=== PATIENT | male | born 1945 | race Caucasian/White ===

== ENCOUNTER → 2020-07-30 16:31 | Outpatient (CLI) | payer MEDICARE, BC, SELFPAY ==
--- NOTE | 2020-07-30 | DI.MRI.S_ITS ---
PROCEDURE: MR KNEE RT WO CON INDICATIONS: PAIN IN RIGHT KNEE TECHNIQUE: Noncontrast sagittal PD fast spin echo and T2 fast spin echo with fat saturation, sagittal 3-D FLASH with fat saturation; coronal T1 spin echo and PD fast spin echo with fat saturation, and axial PD fast spin echo with fat saturation through the knee. COMPARISON: None. FINDINGS: Image quality: Excellent. Menisci: Peripheral displacement of medial meniscus is seen bowing medial collateral ligament. There is truncated appearance of the medial meniscus suggestive of prior partial meniscectomy versus chronic complex tear. There is oblique tear involving anterior horn of lateral meniscus extending to superior articulating surface. The meniscal root ligaments appear intact. Cruciate ligaments: There is nonvisualization of normal anterior cruciate ligament suggestive of chronic ACL rupture. Posterior cruciate ligament is intact. Medial structures: Low-grade MCL sprain is seen. The posterior oblique ligament, semimembranosus tendon insertions, oblique popliteal ligament, and meniscocapsular junction appear intact. Visualized portions of the pes anserinus tendons appear normal. No abnormal bursal fluid. Lateral structures: The lateral collateral ligament, long and short heads of the biceps femoris tendon appear intact. There is suggestion of tendinosis and low-grade partial-thickness tear involving popliteus tendon extending to musculotendinous junction. The posterosuperior and anteroinferior popliteomeniscal fascicles appear intact. The arcuate and fabellofibular ligaments appear intact, on either side of the lateral inferior geniculate artery. Iliotibial band appears normal. Anterior structures: The quadriceps and patellar tendons appear intact. Patellar alignment is normal. No femoral trochlear dysplasia or ventral trochlear prominence. No edema in the infrapatellar fat pad. Bones and cartilage: No fracture or dislocation is seen. Mild marrow edema involving weight-bearing portion of medial femoral condyle. 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 Low-grade chondromalacia involving weight-bearing portion of lateral femoral tibial compartment is seen. Articulating cartilages in patellofemoral compartment is intact. Joint space: There is moderate amount of joint fluid, no gross intra-articular loose body. No Bueno's cyst. Normal appearing synovial plicae are incidentally noted. IMPRESSION: 1. Truncated appearance of medial meniscus suggestive of prior partial meniscectomy versus chronic complex medial meniscal tear. Suggestion of oblique tear involving anterior horn of lateral meniscus extending to superior articulating surface. 2. Suggestion of full-thickness rupture of ACL. PCL is intact. 3. Low-grade MCL sprain. 4. Tendinosis and low-grade partial-thickness tear involving proximal popliteus tendon extending to musculotendinous junction. 5. 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 No fracture or dislocation. Low-grade chondromalacia in lateral femoral tibial compartment. Moderate amount of joint fluid, no gross loose body. Dictated by: Silver Mijares M.D. on 08/02/2020 at 8:51 Approved by: Silver Mijares M.D. on 08/02/2020 at 8:56
== END ==
PROVIDERS: Referring Provider Orthopaedic Surgery; Visit Provider Orthopaedic Surgery
DX: M25.561 Pain in right knee (principal); S83.411A Sprain of medial collateral ligament of right knee, initial encounter; S86.811A Strain of other muscle(s) and tendon(s) at lower leg level, right leg, initial encounter; M17.11 Unilateral primary osteoarthritis, right knee; M94.261 Chondromalacia, right knee
CPT/HCPCS: 73721

== ENCOUNTER → 2020-08-10 14:38 | Outpatient (CLI) | payer MEDICARE, BC, SELFPAY ==
[2020-08-10 15:11] LABS: Bacteria Urine None Seen
[2020-08-10 16:53] LABS: Add Manual Diff / Slide Review NO; Basophils Absolute Auto 100 /uL (0-100); Basophils Percent Auto 0.9 % (0-2); Eosinophils Absolute Auto 100 /uL (0-450); Eosinophils Percent Auto 1.6 % (2-4); Hematocrit 45.7 % (41-53); Hemoglobin 15.1 g/dL (13.5-17.5); Lymphocytes Absolute Auto 1500 /uL (1100-4500); Lymphocytes Percent Auto 23.9 % (25-40); Mean Corpuscular Hemoglobin 29.8 PG (26-34); Mean Corpuscular Volume 90.3 fL (80-100); Monocytes Absolute Auto 400 /uL (0-900); Monocytes Percent Auto 7.2 % (3-14); Neutrophils Absolute Auto 4100 /uL (1500-7000); Neutrophils Percent Auto 66.4 % (50-75); Platelet Count 154 X10^3/uL (150-400); Red Blood Cell Count 5.06 X10^6/uL (4.5-5.9); Red Cell Distribution Width 12.8 % (11.6-14.8); White Blood Cell Count 6.1 X10^3/uL (4.5-11.0)
[2020-08-10 17:05] LABS: Appearance Urine UA CLEAR; Bilirubin Urine UA NEGATIVE (NEGATIVE); Color Urine UA YELLOW; Glucose Urine UA NEGATIVE (Negative); Ketones Urine UA NEGATIVE (NEGATIVE); Leukocyte Esterase Urine UA NEGATIVE (NEGATIVE); Nitrite Urine UA NEGATIVE (Negative); Occult Blood Urine UA NEGATIVE (Negative); Protein Urine UA NEGATIVE (Negative); Specific Gravity Urine UA 1.025 (1.000-1.035); Urobilinogen Urine UA 0.2 E.U./dL (0.2)
[2020-08-10 17:09] LABS: BUN Creatinine Ratio 15.4 (6-22); Blood Urea Nitrogen 14 mg/dL (9-20); Calcium 9.2 mg/dL (8.4-10.2); Carbon Dioxide 32 mmol/L (22-32); Chloride 104 mmol/L (98-107); Estimated Glomerular Filt Rate > 60.0 mL/min (>60); Glucose 150 mg/dL (80-110); HEMOLYSIS < 15 (0-50); Potassium 3.9 mmol/L (3.4-5.1); Sodium 141 mmol/L (137-145)
[2020-08-10 17:10] LABS: Hemoglobin A1C% w Est Avg Glu 5.6 % (4.0-6.0)
[2020-08-10 17:18] LABS: Culture Indicated Urine Cult Not Indicated; RBC Urine 0-1/HPF (0-5/HPF); Squamous Epithelial Cell Urine 0-1 /HPF (0-5/HPF); Urine Comments Microscopic Normal; WBC Urine 0-1/HPF (0-5/HPF)
== END ==
PROVIDERS: Referring Provider Orthopaedic Surgery; Visit Provider Orthopaedic Surgery
DX: Z01.818 Encounter for other preprocedural examination (principal); Z01.812 Encounter for preprocedural laboratory examination; R73.9 Hyperglycemia, unspecified; N39.0 Urinary tract infection, site not specified
CPT/HCPCS: 36415; 80048; 81001; 83036; 85025; 93005

== ENCOUNTER → 2021-02-17 10:30 | Outpatient (CLI) | payer MEDICARE, BC, SELFPAY ==
[2021-02-17 11:29] LABS: Add Manual Diff / Slide Review NO; Basophils Absolute Auto 100 /uL (0-100); Basophils Percent Auto 1.1 % (0-2); Eosinophils Absolute Auto 100 /uL (0-450); Eosinophils Percent Auto 1.6 % (2-4); Hematocrit 44.6 % (41-53); Lymphocytes Absolute Auto 1200 /uL (1100-4500); Lymphocytes Percent Auto 24.8 % (25-40); Mean Corpuscular HGB Conc 33.6 % (30-36); Mean Corpuscular Hemoglobin 29.8 PG (26-34); Mean Corpuscular Volume 88.6 fL (80-100); Monocytes Absolute Auto 500 /uL (0-900); Monocytes Percent Auto 10.9 % (3-14); Neutrophils Absolute Auto 2900 /uL (1500-7000); Neutrophils Percent Auto 61.6 % (50-75); Platelet Count 152 X10^3/uL (150-400); Red Blood Cell Count 5.03 X10^6/uL (4.5-5.9); Red Cell Distribution Width 13.1 % (11.6-14.8); White Blood Cell Count 4.8 X10^3/uL (4.5-11.0)
[2021-02-17 12:14] LABS: BUN Creatinine Ratio 22.1 (6-22); Blood Urea Nitrogen 17 mg/dL (9-20); Calcium 9.4 mg/dL (8.4-10.2); Carbon Dioxide 27 mmol/L (22-32); Chloride 104 mmol/L (98-107); Estimated Glomerular Filt Rate > 60.0 mL/min (>60); Glucose 84 mg/dL (80-110); HEMOLYSIS < 15 (0-50); Potassium 4.6 mmol/L (3.4-5.1); Sodium 139 mmol/L (137-145)
== END ==
PROVIDERS: Referring Provider Orthopaedic Surgery; Visit Provider Orthopaedic Surgery
DX: Z01.812 Encounter for preprocedural laboratory examination (principal)
CPT/HCPCS: 36415; 80048; 85025

== ENCOUNTER → 2024-06-26 14:56 | Outpatient (CLI) | payer MEDICARE, BC, SELFPAY ==
[2024-06-26 17:41] LABS: Prostate Specific Antigen 5.76 ng/mL (0.10-4.00)
== END ==
PROVIDERS: PCP Student in an Organized Health Care Education/Training Program; Referring Provider Urology; Visit Provider Urology
DX: C61 Malignant neoplasm of prostate (principal); R97.20 Elevated prostate specific antigen [PSA]; N40.1 Benign prostatic hyperplasia with lower urinary tract symptoms; R30.0 Dysuria; Z68.29 Body mass index [BMI] 29.0-29.9, adult
CPT/HCPCS: 36415; 51798; 84153; 99213

== ENCOUNTER → 2024-07-28 14:21 | Outpatient (CLI) | payer MEDICARE, BC, SELFPAY ==
[2024-07-28 16:11] LABS: Prostate Specific Antigen 4.36 ng/mL (0.10-4.00)
== END ==
PROVIDERS: PCP Student in an Organized Health Care Education/Training Program; Referring Provider Urology; Visit Provider Urology
DX: N40.1 Benign prostatic hyperplasia with lower urinary tract symptoms (principal)
CPT/HCPCS: 36415; 84153

== ENCOUNTER → 2025-02-23 10:10 | Outpatient (CLI) | payer MEDICARE, BC, SELFPAY ==
[2025-02-23 12:39] LABS: Prostate Specific Antigen 1.33 ng/mL (0.10-4.00)
== END ==
PROVIDERS: Radiology Radiation Oncology; PCP Student in an Organized Health Care Education/Training Program; Referring Provider Urology; Visit Provider Urology
DX: C61 Malignant neoplasm of prostate (principal)
CPT/HCPCS: 36415; 84153

== ENCOUNTER 2025-04-24 16:02 | Emergency (ER) | payer MEDICARE, BC, SELFPAY ==
[2025-04-24 16:18] VITALS: BP 178/86; PULSE 77; RESP 17; TEMP 36.7; O2SAT 99; BMI 29.5
[2025-04-24 16:42] LABS: Add Manual Diff / Slide Review NO; Basophils Absolute Auto 0 /uL (0-100); Basophils Percent Auto 0.6 % (0-2); Eosinophils Absolute Auto 100 /uL (0-450); Eosinophils Percent Auto 1.3 % (2-4); Hematocrit 40.8 % (41-53); Hemoglobin 13.7 g/dL (13.5-17.5); Lymphocytes Absolute Auto 700 /uL (1100-4500); Lymphocytes Percent Auto 11.8 % (25-40); Mean Corpuscular HGB Conc 33.6 % (30-36); Mean Corpuscular Hemoglobin 30.9 PG (26-34); Monocytes Absolute Auto 500 /uL (0-900); Monocytes Percent Auto 8.7 % (3-14); Neutrophils Absolute Auto 4500 /uL (1500-7000); Neutrophils Percent Auto 77.6 % (50-75); Platelet Count 120 X10^3/uL (150-400); Red Blood Cell Count 4.43 X10^6/uL (4.5-5.9); Red Cell Distribution Width 13.1 % (11.6-14.8); White Blood Cell Count 5.9 X10^3/uL (4.5-11.0)
[2025-04-24 16:54] LABS: Alanine Aminotransferase 21 IU/L (<50); Albumin 4.4 g/dL (3.5-5.0); Albumin Globulin Ratio 1.7 (1.0-2.8); Alkaline Phosphatase 67 U/L (38-126); Aspartate Aminotransferase 39 IU/L (17-59); BUN Creatinine Ratio 20.9 (6-22); Bilirubin Total 0.9 mg/dL (0.2-1.3); Blood Urea Nitrogen 23 mg/dL (9-20); Calcium 8.9 mg/dL (8.4-10.2); Carbon Dioxide 27 mmol/L (22-32); Chloride 105 mmol/L (98-107); Estimated Glomerular Filt Rate > 60 mL/min (>60); Globulin 2.6 g/dL (1.7-4.1); Glucose 98 mg/dL (70-99); HEMOLYSIS < 15 (0-50); Lipase 338 U/L (23-300); Potassium 3.8 mmol/L (3.4-5.1); Sodium 140 mmol/L (137-145)
--- NOTE | 2025-04-24 17:22 | DI.CT.S_ITS ---
PROCEDURE: CT ABDOMEN PELVIS W CON INDICATIONS: abd pain TECHNIQUE: After the administration of intravenous contrast, axial sections acquired from the lung bases to the pubic symphysis. Coronal and sagittal reformats were performed. For radiation dose reduction, the following was used: automated exposure control, adjustment of mA and/or kV according to patient size. COMPARISON: None. FINDINGS: Image quality: Diagnostic. Lower Chest: No significant findings. ABDOMEN: Liver: No solid mass. Gallbladder: Multiple calculi in the gallbladder. No inflammatory changes Biliary ducts: No biliary dilation. Pancreas: No ductal dilation. Spleen: Size is within normal limits. Adrenal Glands: No adrenal nodules. Kidneys and Ureters: Several cysts bilaterally. There is a 1.85 x 1.6 cm exophytic lesion arising from the right kidney laterally which is slightly hyperdense. There is a 4 millimeter stone in the interpolar region of the right kidney as well as another 4 millimeter stone in the upper pole, also with several punctate nephrolith. There is mild right hydronephrosis. There is a 2.5 millimeter stone at the medial aspect of the right UVJ. There is also a 7 millimeter stone in the lower pole of the left kidney. No hydronephrosis on the left. Stomach and Bowel: Normal colonic caliber, without significant wall thickening. Peritoneum: No abnormal intraperitoneal fluid. No free air. Ventral Wall: No significant ventral hernia. Abdominal Nodes: No retroperitoneal or mesenteric adenopathy by size criteria. Vessels: Aorta and inferior vena cava are normal in size. PELVIS: Pelvic Organs: Unremarkable. Bladder: No bladder wall thickening, accounting for underdistention. Pelvic Nodes: No enlarged lymph nodes. Miscellaneous: No inguinal hernias are seen. Bones: No aggressive osseous abnormality. IMPRESSION: 1. There is a 2.5 millimeter stone at the mid medial aspect of the right UVJ, possibly already in the bladder lumen. There is associated mild right hydronephrosis. 2. Bilateral nonobstructing renal calculi as above. 3. Indeterminate exophytic renal lesion on the right, can be further assessed with follow-up MRI in 3 months. Dictated by: Bao Martinez M.D. on 04/24/2025 at 18:35 Approved by: Bao Martinez M.D. on 04/24/2025 at 18:41
[2025-04-24 20:30] VITALS: BP 160/76; PULSE 72; RESP 18; O2SAT 99
--- NOTE | 2025-04-24 20:55 | ED.ABDPAIN ---
HPI - Abdominal Pain General Chief Complaint: Abdominal Pain Stated Complaint: Pain in stomach, lower Rt side x8days Time Seen by Provider: 04/24/25 16:27 Source: patient Mode of arrival: Ambulatory History of Present Illness HPI narrative: 80-year-old gentleman history of prostate cancer status post radiation in remission presents with right lower back pain radiating to the right lower quadrant along with nausea intermittently over the past week worse today. Patient denies fever, chills, vomiting, diarrhea, urinary complaints, penile discharge, or testicular pain. Other than what is stated 14 point review of system is negative. Related Data Previous Rx's ?Medication ?Instructions ?Recorded hydrocodone 5 mg-acetaminophen 325 1 tab PO Q4-6H PRN pain #20 tabs 04/24/25 mg tablet tamsulosin 0.4 mg capsule (Flomax) 0.4 mg PO DAILY #30 caps 04/24/25 tamsulosin 0.4 mg capsule (Flomax) 0.4 mg PO DAILY #30 caps 04/24/25 Allergies Allergy/AdvReac Type Severity Reaction Status Date / Time No Known Drug Allergies Allergy Unverified 04/24/25 16:18 Review of Systems Review of Systems ROS Unobtainable: All systems reviewed & are unremarkable except as noted in HPI and below Patient History Medical History (Updated 04/24/25 @ 21:09 by Shashank Yu DO) History of radiation therapy Lower urinary tract symptoms due to benign prostatic hyperplasia Elevated PSA Prostate cancer Smoking Status: Never smoker Exam Narrative Exam Narrative: GENERAL: [80] year old patient appears stated age. Well-developed patient, in mild distress. HEAD: Atraumatic. Normocephalic. EYES: Pupils equal round and reactive. Extraocular motions intact. No scleral icterus. No injection or drainage. ENT: Nose without bleeding, purulent drainage. Throat without erythema, tonsillar hypertrophy or exudate. Airway patent. NECK: Trachea midline. Non tender CARDIOVASCULAR: Regular rate and rhythm without murmurs, gallops, or rubs. RESPIRATORY: Clear to auscultation. Breath sounds equal bilaterally. No wheezes, rales, or rhonchi. GASTROINTESTINAL: Abdomen soft, non-tender, nondistended. EXTREMITIES: No edema or joint tenderness. BACK: Nontender without deformity or crepitance. No flank tenderness. NEURO: AOx3. SKIN: No rash or erythema of visible areas Initial Vital Signs Initial Vital Signs: Vital Signs Temperature 98.1 F 04/24/25 16:18 Pulse Rate 77 04/24/25 16:18 Respiratory Rate 17 04/24/25 16:18 Blood Pressure 178/86 H 04/24/25 16:18 Pulse Oximetry 99 04/24/25 16:18 Oxygen Delivery Method Room Air 04/24/25 16:18 Course Orders Ordered: ED Orders 04/24/25 16:20 Complete Blood Count AUTO DIFF Stat Comprehensive Metabolic Panel Stat Lipase Stat 04/24/25 17:22 CT abdomen pelvis w con Stat Ondansetron HCl (Ondansetron 4 Mg/2 Ml Inj) 4 mg IV NOW PRN PRN Reason: Nausea And Vomiting Ondansetron HCl (Ondansetron 4 Mg Odt) 4 mg PO NOW PRN PRN Reason: Nausea And Vomiting Vital Signs Vital signs: Vital Signs - 8 hr 04/24/25 16:18 04/24/25 20:30 04/24/25 20:30 Temperature 98.1 F Pulse Rate 77 72 Respiratory Rate 17 18 Blood Pressure 178/86 H 160/76 H Pulse Oximetry 99 99 Oxygen Delivery Method Room Air Room Air MDM - Abdominal Pain Lab Data 04/24/25 16:20 04/24/25 16:20 Labs: Lab Results 04/24/25 Range/Units 16:20 WBC 5.9 (4.5-11.0) X10^3/uL RBC 4.43 L (4.5-5.9) X10^6/uL Hgb 13.7 (13.5-17.5) g/dL Hct 40.8 L (41-53) % MCV 92.0 (80-100) fL MCH 30.9 (26-34) PG MCHC 33.6 (30-36) % RDW 13.1 (11.6-14.8) % Plt Count 120 L (150-400) X10^3/uL Neut % (Auto) 77.6 H (50-75) % Lymph % (Auto) 11.8 L (25-40) % [place] % (Auto) 8.7 (3-14) % Eos % (Auto) 1.3 L (2-4) % Baso % (Auto) 0.6 (0-2) % Neut # (Auto) 4500 (9118-7954) /uL Lymph # (Auto) 700 L (8771-6002) /uL [place] # (Auto) 500 (0-900) /uL Eos # (Auto) 100 (0-450) /uL Baso # (Auto) 0 (0-100) /uL Sodium 140 (137-145) mmol/L Potassium 3.8 (3.4-5.1) mmol/L Chloride 105 (98-107) mmol/L Carbon Dioxide 27 (22-32) mmol/L BUN 23 H (9-20) mg/dL Creatinine 1.10 (0.66-1.25) mg/dL Estimated GFR > 60 (>60) mL/min BUN/Creatinine Ratio 20.9 (6-22) Glucose 98 (70-99) mg/dL Calcium 8.9 (8.4-10.2) mg/dL Total Bilirubin 0.9 (0.2-1.3) mg/dL AST 39 (17-59) IU/L ALT 21 (<50) IU/L Alkaline Phosphatase 67 (38-126) U/L Total Protein 7.0 (6.3-8.2) g/dL Albumin 4.4 (3.5-5.0) g/dL Globulin 2.6 (1.7-4.1) g/dL Albumin/Globulin Ratio 1.7 (1.0-2.8) Lipase 338 H (23-300) U/L Point of care testing: Urine Dip Bedside Urine Glucose Negative Bedside Urine Bilirubin - Negative Bedside Urine Ketone +/- 5 Urine Specific [place] 1.010 Bedside Urine Occult Blood ++ Bedside Urine pH 6.0 Bedside Urine Protein - Negative Bedside Urine Urobilinogen - Negative Bedside Urine Nitrite - Negative Bedside Urine Leukocytes - Negative Esterase Imaging Data CT scan - abdomen/pelvis: Radiologist's Impression: [address] [address] [address] Scan Report Signed Patient: Robin Mcnamara MR#: [id number] : 1945 Acct:[id number] Age/Sex: 80 / M Date of Service: 04/24/25 Loc: ED Accession Number: [id number] Procedure: CT abdomen pelvis w con Ordering Provider: Soni Lopez MD PROCEDURE: CT ABDOMEN PELVIS W CON INDICATIONS: abd pain TECHNIQUE: After the administration of intravenous contrast, axial sections acquired from the lung bases to the pubic symphysis. Coronal and sagittal reformats were performed. For radiation dose reduction, the following was used: automated exposure control, adjustment of mA and/or kV according to patient size. COMPARISON: None. FINDINGS: Image quality: Diagnostic. Lower Chest: No significant findings. ABDOMEN: Liver: No solid mass. Gallbladder: Multiple calculi in the gallbladder. No inflammatory changes Biliary ducts: No biliary dilation. Pancreas: No ductal dilation. Spleen: Size is within normal limits. Adrenal Glands: No adrenal nodules. Kidneys and Ureters: Several cysts bilaterally. There is a 1.85 x 1.6 cm exophytic lesion arising from the right kidney laterally which is slightly hyperdense. There is a 4 millimeter stone in the interpolar region of the right kidney as well as another 4 millimeter stone in the upper pole, also with several punctate nephrolith. There is mild right hydronephrosis. There is a 2.5 millimeter stone at the medial aspect of the right UVJ. There is also a 7 millimeter stone in the lower pole of the left kidney. No hydronephrosis on the left. Stomach and Bowel: Normal colonic caliber, without significant wall thickening. Peritoneum: No abnormal intraperitoneal fluid. No free air. Ventral Wall: No significant ventral hernia. Abdominal Nodes: No retroperitoneal or mesenteric adenopathy by size criteria. Vessels: Aorta and inferior vena cava are normal in size. PELVIS: Pelvic Organs: Unremarkable. Bladder: No bladder wall thickening, accounting for underdistention. Pelvic Nodes: No enlarged lymph nodes. Miscellaneous: No inguinal hernias are seen. Bones: No aggressive osseous abnormality. IMPRESSION: 1. There is a 2.5 millimeter stone at the mid medial aspect of the right UVJ, possibly already in the bladder lumen. There is associated mild right hydronephrosis. 2. Bilateral nonobstructing renal calculi as above. 3. Indeterminate exophytic renal lesion on the right, can be further assessed with follow-up MRI in 3 months. MDM Narrative Medical decision making narrative: All lab work, vital signs, nurse triage note, medication list, previous ER visits, and all imaging studies reviewed. CT abdomen and pelvis showed 2.5 mm stone at the mid medial aspect of the right UVJ possibly already in the bladder lumen and mild right hydronephrosis. Bilateral nonobstructing renal calculi. Indeterminate exophytic renal lesion of the right can be further assessed follow up MRI in 3 months. Patient given Flomax and strainer here and will be discharged on Flomax strainer and [place] and to follow up with Dr. Pereira urologist and to keep hydrated. Discharge Plan Departure Patient Disposition: Home Clinical Impression: Kidney stone, Kidney lesion Instructions: DI for Kidney Stones Activity Restrictions/Additional Instructions: Return with new or worsening symptoms. Take your medicines as directed and to keep hydrated. Follow up with Dr. Pereira urologist call office on Sunday. Prescriptions: New tamsulosin [Flomax] 0.4 mg capsule 0.4 mg PO DAILY Qty: 30 0RF tamsulosin [Flomax] 0.4 mg capsule 0.4 mg PO DAILY Qty: 30 0RF hydrocodone-acetaminophen 5-325 mg tablet 1 tab PO Q4-6H PRN (Reason: pain) Qty: 20 0RF Referrals: Robin Maher MD [Primary Care Provider, Family Practice] Edvin Pereira DO [Physician, Urology] Referral Note: There is a 2.5 millimeter stone at the mid medial aspect of the right UVJ, possibly already in the bladder lumen. There is associated mild right hydronephrosis. Stand Alone Forms: Patient Portal/API
[2025-04-24 21:00] VITALS: BP 163/77; PULSE 72; RESP 18; O2SAT 98
[2025-04-24] MEDS: HYDROCODONE/ACET 5/325 PREPACK 1 BOTTLE MISC (21:17)
[2025-04-24] MEDS: ONDANSETRON 4 MG ODT PREPACK 1 BOTTLE MISC (21:17)
[2025-04-24] MEDS: TAMSULOSIN 0.4 MG CAPSULE PO (21:17)
== END 2025-04-24 21:27 | disposition home or self-care (01) ==
PROVIDERS: Emergency Medicine; Emergency Provider Family Medicine; PCP Student in an Organized Health Care Education/Training Program
DX: N13.2 Hydronephrosis with renal and ureteral calculous obstruction (principal); N28.89 Other specified disorders of kidney and ureter; Z85.46 Personal history of malignant neoplasm of prostate
CPT/HCPCS: 36415; 74177; 80053; 81003; 83690; 85025; 99283; 99284; Q9967

== ENCOUNTER → 2025-05-21 08:28 | Outpatient (CLI) | payer MEDICARE, BC, SELFPAY ==
--- NOTE | 2025-05-21 08:29 | DI.CT.S_ITS ---
PROCEDURE: CT PEL WO CON INDICATIONS: 80 y/o M w/ a 3mm right UVJ calculus, eval for passage TECHNIQUE: Noncontrast 3 mm axial sections acquired through the bony pelvis, with coronal and sagittal reformatting. COMPARISON: [facility], CT, CT ABDOMEN PELVIS W CON, 04/24/2025, 17:52. FINDINGS: Image quality: Diagnostic Lower abdomen: Colonic diverticulosis. No pathologic ascites or drainable abscess. Bladder: Previously noted right UVJ stone is not seen. No ureter dilation. Reproductive organs: Postprocedural changes at the prostate bed. Rectum: Unremarkable Vessels and lymph nodes: No aneurysmal vessel identified. No enlarged lymph nodes by size criteria. Atherosclerotic calcifications are seen. Pelvic wall: Unremarkable Bones: Right hip arthroplasty. Degenerative changes. IMPRESSION: Interval passage of the right UVJ stone. No ureter dilation. No calcified bladder stone. Other findings above. Dictated by: Vasiliy Mueller M.D. on 05/21/2025 at 16:52 Approved by: Vasiliy Mueller M.D. on 05/21/2025 at 16:56
[2025-05-21 10:51] LABS: Prostate Specific Antigen 1.47 ng/mL (0.10-4.00)
== END ==
PROVIDERS: PCP Student in an Organized Health Care Education/Training Program; Referring Provider Urology; Visit Provider Urology
DX: C61 Malignant neoplasm of prostate (principal); N20.1 Calculus of ureter; K57.90 Diverticulosis of intestine, part unspecified, without perforation or abscess without bleeding; Z96.641 Presence of right artificial hip joint
CPT/HCPCS: 36415; 72192; 84153

== ENCOUNTER → 2025-08-20 14:55 | Outpatient (CLI) | payer MEDICARE, BC, SELFPAY ==
--- NOTE | 2025-08-20 14:57 | DI.MRI.S_ITS ---
PROCEDURE: MR ABDOMEN RENAL PROTOCOL INDICATIONS: 80 y/o M w/ a right renal mass, please eval TECHNIQUE: Coronal HASTE through abdomen and pelvis; axial 2D FLASH in- and [id number] (with and without fat saturation), and breath-hold T2 FSE from the hepatic dome to the bottom of the kidneys. Coronal HASTE MR urogram of kidneys and bladder. Dynamic coronal VIBE during IV gadolinium administration; postgadolinium axial VIBE or 2D FLASH with fat saturation from the hepatic dome through the kidneys. COMPARISON: [facility], CT, CT ABDOMEN PELVIS W CON, 04/24/2025, 17:52. FINDINGS: Image quality: Diagnostic Lower chest: Lung bases appear unremarkable. Normal heart size where visualized Liver: There are small cysts. Gallbladder and biliary system: Cholelithiasis nondilated Pancreas: No ductal dilation Spleen: Nonenlarged Adrenals: No discrete nodules Kidneys: Multiple left and right renal cysts are present. The most suspicious finding is in the right mid kidney, measuring 1.8 cm. Thickened marin and a thick thickened septation is seen, measuring up to 4 mm. Upper proposed 2019 [place] guidelines this is [place] 3. Vessels and lymph nodes: No enlarged lymph nodes by size criteria. No abdominal aneurysm. The main portal vein is patent. Right renal vein and IVC are patent. Bowel and peritoneum: No bowel obstruction. Colonic diverticula are seen. No drainable ascites Body wall: Unremarkable Bones: No aggressive appearing osseous abnormality. IMPRESSION: Bosniak 3, 1.8 cm lesion is seen in the right mid kidney. These lesions have a intermediate probability of malignancy, consider urologic follow-up. Other benign renal cysts are present. No hydronephrosis. The right renal vein appears patent. IVC appears patent No other acute or suspicious findings in the abdomen. Other incidental findings above. Dictated by: Vasiliy Mueller M.D. on 08/21/2025 at 8:20 Approved by: Vasiliy Mueller M.D. on 08/21/2025 at 8:27
[2025-08-20 19:21] LABS: Prostate Specific Antigen 1.26 ng/mL (0.10-4.00)
== END ==
PROVIDERS: PCP Student in an Organized Health Care Education/Training Program; Referring Provider Urology; Visit Provider Urology
DX: C61 Malignant neoplasm of prostate (principal); N28.89 Other specified disorders of kidney and ureter; N28.1 Cyst of kidney, acquired; K76.89 Other specified diseases of liver; K80.20 Calculus of gallbladder without cholecystitis without obstruction; K57.90 Diverticulosis of intestine, part unspecified, without perforation or abscess without bleeding
CPT/HCPCS: 36415; 74183; 84153; A9579